=== PATIENT | female | born 2000 | race African-American/Black ===

== ENCOUNTER 2022-07-04 21:25 | Outpatient (CLI) | payer OTHER ==
[2022-07-04 22:56] VITALS: BP 152/84; PULSE 80; RESP 16; TEMP 98.2
--- NOTE | 2022-07-05 08:47 | P.MSEPDOC ---
Presenting Problems - Arrival Data Date of Arrival on Unit: 07/04/22 Time of Arrival on Unit: 21:25 Mode of Transport: Ambulatory - Complaint OB-Reason for Admission/Chief Complaint: Pain Comment: Patient arrived stated that she has been having painful contractions for. weeks. States that she has seen Dr. Alcaraz in the office. Patient states that the pain. is 8/10 with tightening. Arrived with cousin. Denies sexual activity in the past 24. hours. Medical History - Information : 1 Para: 0 Term: 0 : 0 Abortions: Spontaneous or Elective: 0 Number of Living Children: 0 - Gestational Age Gestational Age by JHONATAN (wks/days): 38 Weeks and 4 Days Review of Systems - Review of Systems Constitutional: No problems Breast: No problems ENT: No problems Cardiovascular: No problems Respiratory: No problems Gastrointestinal: No problems Genitourinary: No problems Musculoskeletal: No problems Neurological: No problems Skin: No problems Vital Signs - Temperature Temperature: 98.2 F Temperature Source: Temporal Artery Scan - Pulse Pulse Oximetery Pulse Rate: 80 Pulse Assessment Method: Pulse Oximetry - Respirations Respiratory Rate: 16 Oxygen Delivery Method: Room Air O2 Sat by Pulse Oximetry: 98 - Blood Pressure Right Arm Blood Pressure: 152/84 Blood Pressure Mean: 106 Blood Pressure Source: Automatic Cuff Medical Screen Scoring - Cervical Exam Dilation (cm): 0 Membranes: Intact - Assessment - Baby A Baseline FHR: 125 Heart Rate - NICHD Category: Category I (Normal) NST: Reactive Physician Notification - Physician Notified Physician Notified Date: 07/04/22 Physician Notified Time: 22:12 Physician: La Roman Order Received: Yes (Discharge home) - Notification Comment Comment: Discharged with instructions to keep appointment with Dr. Alcaraz this or to return if contractions become long, strong and 2-3 minutes apart or SROM occurs. Maternal Triage Index - Maternal Triage Index Presenting for scheduled procedure w/no complaint: No - Stat/Priority 1 Stat Priority 1: No - Urgent/Priority 2 Urgent Priority 2: No - Prompt/Priority 3 Prompt Priority 3: No - Non-Urgent/Priority 4 Non-Urgent Priority 4: Yes Criteria Met for Priority 4: Dr. Roman contacted, RN reported on patient and status,. irregular contraction pattern, patient denies pain since arriving to [facility] triage. Orders. to discharge with intructions to keep follow up appointment with Dr. Kieran bray or to return if contractions become more regular, 2-3 minutes apart, or SROM. occurs. Disposition - Disposition OB Disposition: Discharge to home Discharge Date: 07/04/22 Discharge Time: 22:24 I agree with the RN Medical Screening Exam: Yes Case reviewed; plan agreed upon as documented in EMR&OBIX.: Yes Diagnosis: FALSE LABOR AT OR AFTER 37 COMPLETED WEEKS OF GESTATION
== END 2022-07-04 22:24 | disposition home or self-care (01) ==
LOC: FBPOP 21:25
PROVIDERS: ATTEND Obstetrics & Gynecology
DX: O47.1 False labor at or after 37 completed weeks of gestation (principal); Z3A.38 38 weeks gestation of pregnancy
CPT/HCPCS: 59025; 84112; G0463; 99213

== ENCOUNTER 2022-07-08 06:00 | Inpatient (IN) | payer OTHER ==
[2022-07-08] MEDS ORDERED: OXYTOCIN 30 UNITS/500 ML NS 30 UNIT in SALINE 1 500ML.BAG IV SCH (16:18)
[2022-07-08] MEDS ORDERED: DINOPROSTONE 10 MG INSERT.ER VAGINAL ONE (16:18)
[2022-07-08] MEDS ORDERED: BUTORPHANOL 2 MG/ML 1 ML VIAL IV PRN (16:18)
[2022-07-08] MEDS ORDERED: hydrALAZINE HCL 20 MG/ML 1 ML VIAL IVP PRN (17:15)
[2022-07-08] MEDS ORDERED: LABETALOL 5 MG/ML VIAL MDV IVP PRN ×3 (17:15)
[2022-07-08] MEDS ORDERED: LACTATED RINGERS 1,000 ML IV SCH (17:30)
[2022-07-08 17:57] LABS: Basophils % (A) 0 %; Eosinophils % (A) 0 %; HCT 35.5 % (34.0-46.0); HGB 12.1 gm/dL (11.4-16.0); Lymphocytes # (A) 1.2 k/uL (1.0-4.8); Lymphocytes % (A) 25 %; MCH 31.6 pg (25.0-35.0); MCHC 34.1 g/dL (31.0-37.0); MCV 92.7 fL (80.0-100.0); Mean Platelet Volume 7.8; Monocytes # (A) 0.3 k/uL (0-1.0); Monocytes % (A) 7 %; Neutrophils # (A) 3.1 k/uL (1.3-7.7); Neutrophils % (A) 66 %; Platelet Count 217 k/uL (150-450); RBC 3.83 m/uL (3.80-5.40); RDW 13.5 % (11.5-15.5); WBC 4.7 k/uL (3.8-10.6)
[2022-07-08 18:01] LABS: ALT 30 U/L (4-34); AST 46 U/L (14-36); African American GFR (CKD) >90 (>60 ml/min/1.73 sqM); Blood Urea Nitrogen 3 mg/dL (7-17); LDH 245 U/L (120-246); Non-African American GFR(CKD) >90 (>60 ml/min/1.73 sqM); Uric Acid 3.7 mg/dL (3.7-7.4)
[2022-07-08 18:04] LABS: INR 0.9 (<1.2); Partial Thromboplastin Time 26.3 sec (22.0-30.0); Prothrombin Time 9.7 sec (9.0-12.0)
[2022-07-08 19:07] LABS: Creatinine,Urine Random 26.9 mg/dL; Protein/Creatinine Ratio,Urine 1.301
[2022-07-08] MEDS ORDERED: OXYTOCIN 10 UNIT/ML 1 ML VIAL IM PRN (19:13)
[2022-07-08] MEDS ORDERED: METHYLERGONOVINE 0.2 MG/ML 1 ML AMP IM PRN (19:13)
[2022-07-08] MEDS ORDERED: CITRIC ACID-SODIUM CITRATE 15 ML CUP PO ONE (19:13)
[2022-07-08] MEDS ORDERED: miSOPROStoL 200 MCG TAB PO PRN (19:13)
[2022-07-08] MEDS ORDERED: CARBOPROST TROMETHAMINE 250 MCG/ML 1 ML AMP IM PRN (19:13)
[2022-07-08] MEDS ORDERED: TRANEXAMIC ACID IN NACL,ISO-OS 1,000 MG in EMPTY BAG 1 BAG IV PRN (19:13)
[2022-07-08] MEDS ORDERED: MORPHINE SULFATE (PF) 0.3 MG/0.3 ML SYR ONE (19:39)
[2022-07-08] MEDS ORDERED: ONDANSETRON 4 MG/2 ML VIAL ONE (19:39)
[2022-07-08] MEDS ORDERED: OXYTOCIN 30 UNITS/500 ML NS BAG IV ONE (19:39)
[2022-07-08] MEDS ORDERED: KETOROLAC 15 MG/ML 1 ML VIAL ONE (19:39)
[2022-07-08] MEDS ORDERED: MORPHINE SULFATE 2 MG/ML SYRINGE IVP PRN (20:01)
[2022-07-08] MEDS ORDERED: diphenhydrAMINE 50 MG/ML 1 ML VIAL IVP PRN ×3 (20:01→20:17)
[2022-07-08] MEDS ORDERED: ONDANSETRON 4 MG/2 ML VIAL IVP PRN (20:01)
[2022-07-08] MEDS ORDERED: NALOXONE 0.4 MG/ML 1 ML VIAL IV PRN (20:01)
[2022-07-08] MEDS ORDERED: MAGNESIUM SULFATE-WATER PMX 4 GM in WATER FOR INJECTION 1 100ML.BAG IVPB ONE (20:16)
[2022-07-08] MEDS ORDERED: diphenhydrAMINE 25 MG CAP PO PRN (20:17)
[2022-07-08] MEDS ORDERED: SIMETHICONE 80 MG CHEWABLE PO PRN (20:17)
[2022-07-08] MEDS ORDERED: LANOLIN CREAM 5 GM TUBE TOPICAL PRN (20:17)
[2022-07-08] MEDS ORDERED: METOCLOPRAMIDE 5 MG/ML 2 ML VIAL IVP PRN (20:17)
[2022-07-08] MEDS ORDERED: ZOLPIDEM 5 MG TAB PO PRN (20:17)
[2022-07-08] MEDS ORDERED: diphenhydrAMINE 50 MG CAP PO PRN (20:17)
[2022-07-08 20:20] LABS: Appearance,Urine Cloudy (Clear); Bilirubin,Urine Negative (Negative); Blood,Urine Negative (Negative); Color,Urine Colorless; Glucose,Urine (UA) Negative (Negative); Ketones,Urine Negative (Negative); Leukocyte Esterase,Urine Large (Negative); Nitrite,Urine Negative (Negative); PH, Urine 7.5 (5.0-8.0); Protein,Urine Negative (Negative); RBC,Urine 1 /hpf (0-5); Specific Gravity,Urine 1.006 (1.001-1.035); Squamous Epithelial Cell,Urine 3 /hpf (0-4); Urobilinogen,Urine <2.0 mg/dL (<2.0); WBC,Urine 24 /hpf (0-5)
[2022-07-08] MEDS: ACETAMINOPHEN TAB 500 MG TAB PO SCH (21:12)
[2022-07-08] MEDS: MAGNESIUM SULFATE-WATER PMX 20 GM in WATER FOR INJECTION 1 500ML.BAG IV SCH (21:36)
[2022-07-09] MEDS: IBUPROFEN 600 MG TAB PO SCH ×4 (02:22→20:39)
[2022-07-09 04:46] LABS: Basophils % (A) 0 %; Eosinophils % (A) 0 %; HCT 30.2 % (34.0-46.0); HGB 10.3 gm/dL (11.4-16.0); Lymphocytes # (A) 0.9 k/uL (1.0-4.8); Lymphocytes % (A) 8 %; MCH 31.7 pg (25.0-35.0); MCV 93.2 fL (80.0-100.0); Monocytes # (A) 0.5 k/uL (0-1.0); Monocytes % (A) 4 %; Neutrophils # (A) 9.2 k/uL (1.3-7.7); Neutrophils % (A) 86 %; Platelet Count 214 k/uL (150-450); RBC 3.24 m/uL (3.80-5.40); RDW 13.5 % (11.5-15.5); WBC 10.7 k/uL (3.8-10.6)
[2022-07-09] MEDS: ACETAMINOPHEN TAB 500 MG TAB PO SCH ×4 (05:22→23:53)
[2022-07-09] MEDS: LACTATED RINGERS 1,000 ML IV SCH ×2 (07:43→07:44)
[2022-07-09] MEDS: MAGNESIUM SULFATE-WATER PMX 20 GM in WATER FOR INJECTION 1 500ML.BAG IV SCH (07:45)
[2022-07-09] MEDS: SENNOSIDES-DOCUSATE SODIUM 1 EACH TAB PO SCH ×2 (07:46→23:53)
[2022-07-09] MEDS: KETOROLAC 15 MG/ML 1 ML VIAL IVP SCH ×3 (09:22→21:19)
--- NOTE | 2022-07-09 10:18 | P.HPOB ---
History of Present Illness H&P Date: 07/08/22 Chief Complaint: induction of labor 22 year old presents at 39 weeks 1 day for 2 stage induction of labor. Her cervix is closed, thick and -3. She is tammy every few minutes. heart tones 135 with moderate variability and reactive. She has been very uncomfortable for the last few weeks but otherwise this has been uncomplicated. Upon presentation to L&D, pts BPs have been elevated. Labs were drawn and IV labetalol given. BPs are still elevated. Labs were drawn and pt is diagnosed with pre-eclampsia with severe features. I spoke to her and her family at bedside and explained the situation. We decided on an expedited delivery via delivery. All questions were answered and consents signed. Review of Systems All systems: negative Constitutional: Denies chills, Denies fever Eyes: denies blurred vision, denies pain Ears, nose, mouth and throat: Denies headache, Denies sore throat Cardiovascular: Denies chest pain, Denies shortness of breath Respiratory: Denies cough Gastrointestinal: Denies abdominal pain, Denies diarrhea, Denies nausea, Denies vomiting Genitourinary: Denies dysuria, Denies hematuria Musculoskeletal: Denies myalgias Integumentary: Denies pruritus, Denies rash Neurological: Denies numbness, Denies weakness Psychiatric: Denies anxiety, Denies depression Endocrine: Denies fatigue, Denies weight change Past Medical History Past Medical History: No Reported History Additional Past Medical History / Comment(s): OB history. This is her first and she had consistent care with me. She made all of her appointments though she had to walk or take the bus. Pt comes from foster care and now lives with siblings. O+, abs neg, Rub Imm, RPR NR, Hep B neg, HIV NR. History of Any Multi-Drug Resistant Organisms: None Reported Past Surgical History: No Surgical Hx Reported Past Anesthesia/Blood Transfusion Reactions: No Reported Reaction Past Psychological History: No Psychological Hx Reported Smoking Status: Never smoker Past Alcohol Use History: None Reported Past Drug Use History: None Reported - Past Family History Sister(s) Family Medical History: No Reported History Brother(s) Family Medical History: Hypertension Medications and Allergies Home Medications Medication Instructions Recorded Confirmed Type Vit No.179/Iron/Folic 1 each PO DAILY 07/04/22 07/08/22 History [ Tablet] Allergies Allergy/AdvReac Type Severity Reaction Status Date / Time No Known Allergies Allergy Verified 07/08/22 16:17 Exam Osteopathic Statement: *. No significant issues noted on an osteopathic structural exam other than those noted in the History and Physical/Consult. Vital Signs Temp Pulse Resp BP Pulse Ox 07/09/22 09:54 16 07/09/22 09:00 100 07/09/22 08:00 98.4 F 75 16 124/70 99 07/09/22 07:00 70 15 100 07/09/22 06:00 71 16 134/86 100 07/09/22 05:00 97.0 F L 69 16 133/77 97 07/09/22 04:00 65 16 135/82 100 07/09/22 03:00 63 16 139/85 100 07/09/22 02:00 72 16 121/70 98 07/09/22 01:01 97 07/09/22 01:00 73 16 115/57 97 07/09/22 00:00 97.0 F L 80 16 129/72 98 07/08/22 23:01 96.3 F L 74 16 130/73 99 07/08/22 22:23 96.3 F L 59 L 16 126/79 99 07/08/22 21:51 97.1 F L 61 16 129/66 99 07/08/22 21:23 97.1 F L 55 L 16 130/77 98 07/08/22 21:08 97.0 F L 56 L 16 129/76 96 07/08/22 20:58 97 07/08/22 20:57 16 97 07/08/22 20:52 97.0 F L 56 L 16 132/64 96 07/08/22 20:38 97.0 F L 56 L 16 112/51 96 07/08/22 20:19 97.0 F L 75 16 111/58 97 07/08/22 17:36 97.8 F 71 16 158/83 98 Intake and Output 07/08/22 07/09/22 07/09/22 22:59 06:59 14:59 Intake Total 750 600 Output Total 1399 934 200 Balance -1399 -184 400 Intake: IV 750 Intake, IV Titration 600 Amount Magnesium Sulfate-Water 600 Pmx 20 gm In Water For Injection 1 500ml.bag @ 2 GM/HR 50 mls/hr IV .Q10H [facility] Rx#:[id number] Output: Urine 800 800 200 Output, Quantitative 599 134 Blood Loss Other: Weight 48.988 kg 55.973 kg Heart: Regular rate and rhythm Lungs: Clear to auscultation bilaterally Abdomen: Soft, nontender Extremities: Negative Homans sign Results Result Diagrams: 07/09/22 04:11 07/08/22 17:30 Abnormal Lab Results - Last 24 Hours (Table) 07/08/22 07/08/22 07/09/22 Range/Units 17:30 18:30 04:11 WBC 10.7 H (3.8-10.6) k/uL RBC 3.24 L (3.80-5.40) m/uL Hgb 10.3 L (11.4-16.0) gm/dL Hct 30.2 L (34.0-46.0) % Neutrophils # 9.2 H (1.3-7.7) k/uL Lymphocytes # 0.9 L (1.0-4.8) k/uL BUN 3 L (7-17) mg/dL Creatinine 0.47 L (0.52-1.04) mg/dL AST 46 H (14-36) U/L Urine Appearance Cloudy H (Clear) Ur Leukocyte Esterase Large H (Negative) Urine WBC 24 H (0-5) /hpf Assessment and Plan (1) Pre-eclampsia Current Visit: Yes Status: Acute Code(s): O14.90 - UNSPECIFIED PRE- ECLAMPSIA, UNSPECIFIED TRIMESTER SNOMED Code(s): 857983080 (2) 39 weeks gestation of Current Visit: Yes Status: Acute Code(s): Z3A.39 - 39 WEEKS GESTATION OF SNOMED Code(s): 01191143 Plan: 1. primary low transverse 2. magnesium sulfate 3. seizure precautions
--- NOTE | 2022-07-09 10:21 | P.OP ---
Date of Procedure: 07/09/22 Preoperative Diagnosis: 1. at 39 weeks 1 day 2. pre-eclampsia with severe features Postoperative Diagnosis: same Procedure(s) Performed: Primary low transverse Anesthesia: spinal Surgeon: Pebbles Alcaraz Electrical Service Technician #1: Kat Sexton Estimated Blood Loss (ml): 500 IV fluids (ml): 600 Urine output (ml): 200 Pathology: other (placenta) Condition: stable Disposition: floor Operative Findings: Viable male, Apgars 9, 9, weight 6 lbs. 13 oz. Normal uterus, tubes, ovaries. Description of Procedure: Patient was taken to the operating room where spinal anesthesia was found be adequate. She was prepped and draped in normal sterile fashion in dorsal supine position with a leftward tilt. Pfannenstiel skin incision was made the scalpel and carried through to the underlying layer of fascia with the scalpel. Fascia was incised in midline and carried bilaterally with the Kraus scissors. The superior aspect of the fascial incision was grasped with [place] clamps elevated and the underlying rectus muscles dissected off with the Kraus's. Attention was then turned to inferior aspect of same incision which in a similar fashion was grasped tented up and the underlying rectus muscles dissected off with the Kraus's. The rectus muscles were the midline and the peritoneum was identified tented up and entered sharply with the scalpel. The incision was ext ended superiorly and inferiorly with good visualization of the bladder. The bladder blade was inserted and the vesicouterine peritoneum was incised the Metzenbaums then carried bilaterally and bladder flap created digitally. A low transverse incision was then made on the uterus with the scalpel. This was carried bilaterally and digital manner. 's head delivered atraumatically, nose and mouth bulb suctioned, cord clamped and cut, infant handed off to waiting nurses. Apgars 9,9, weight 6 lbs. 13 oz. Placenta delivered manually, intact with three-vessel cord. The uterus is exteriorized and cleared of all clots and debris. The uterine incision was closed with 0 Vicryl in a running locked fashion. Second layer of the same sutures used in imbricating fashion to obtain excellent hemostasis. Bladder flap was then reapproximated using 2-0 Vicryl in a running fashion. Both ovaries and tubes appeared normal. The uterus was placed back into the abdomen. The peritoneum was reapproximated using 2-0 Vicryl in a running fashion. The muscles were reapproximated using 2- 0 Vicryl in interrupted fashion. The fascia was reapproximated using 0 Vicryl in a running fashion. The subcutaneous tissues closed with 3-0 Vicryl running fashion. The skin was closed jb. Patient tolerated the procedure well, sponge and instrument counts were correct times 2 and she was taken to the recovery room in stable condition.
--- NOTE | 2022-07-09 10:23 | P.PNOBGPC ---
Subjective - Subjective Principal diagnosis: Status post primary low transverse postop day 1 Interval history: Patient has been placed on magnesium sulfate. She was seen and examined this morning again. She is complaining of a headache behind her eyes and nausea that she is experiencing last night. Her pain is controlled with Toradol and Tylenol. She continues to have good output with the Lemus. Patient reports: Reports pain well controlled (Except for her headache), Reports appetite poor, Reports nauseated : doing well Objective - Vital Signs Latest vital signs: Vital Signs Temp Pulse Resp BP Pulse Ox 07/09/22 09:54 16 07/09/22 09:00 100 07/09/22 08:00 98.4 F 75 16 124/70 99 07/09/22 07:00 70 15 100 07/09/22 06:00 71 16 134/86 100 07/09/22 05:00 97.0 F L 69 16 133/77 97 07/09/22 04:00 65 16 135/82 100 07/09/22 03:00 63 16 139/85 100 07/09/22 02:00 72 16 121/70 98 07/09/22 01:01 97 07/09/22 01:00 73 16 115/57 97 07/09/22 00:00 97.0 F L 80 16 129/72 98 07/08/22 23:01 96.3 F L 74 16 130/73 99 07/08/22 22:23 96.3 F L 59 L 16 126/79 99 07/08/22 21:51 97.1 F L 61 16 129/66 99 07/08/22 21:23 97.1 F L 55 L 16 130/77 98 07/08/22 21:08 97.0 F L 56 L 16 129/76 96 07/08/22 20:58 97 07/08/22 20:57 16 97 07/08/22 20:52 97.0 F L 56 L 16 132/64 96 07/08/22 20:38 97.0 F L 56 L 16 112/51 96 07/08/22 20:19 97.0 F L 75 16 111/58 97 07/08/22 17:36 97.8 F 71 16 158/83 98 Intake and Output 07/08/22 07/09/22 07/09/22 22:59 06:59 14:59 Intake Total 750 600 Output Total 1399 934 200 Balance -1399 -184 400 Intake: IV 750 Intake, IV Titration 600 Amount Magnesium Sulfate-Water 600 Pmx 20 gm In Water For Injection 1 500ml.bag @ 2 GM/HR 50 mls/hr IV .Q10H [facility] Rx#:[id number] Output: Urine 800 800 200 Output, Quantitative 599 134 Blood Loss Other: Weight 48.988 kg 55.973 kg - Exam Lungs: bilateral: normal Chest: Normal S1, Normal S2 Extremities: Present: normal, other (Reflexes are 2+) Abdomen: Present: normal appearance, soft. Absent: distention, tenderness Incision: Present: normal, dry, intact Uterus: Present: normal, firm - Labs Labs: Abnormal Lab Results - Last 24 Hours (Table) 07/08/22 07/08/22 07/09/22 Range/Units 17:30 18:30 04:11 WBC 10.7 H (3.8-10.6) k/uL RBC 3.24 L (3.80-5.40) m/uL Hgb 10.3 L (11.4-16.0) gm/dL Hct 30.2 L (34.0-46.0) % Neutrophils # 9.2 H (1.3-7.7) k/uL Lymphocytes # 0.9 L (1.0-4.8) k/uL BUN 3 L (7-17) mg/dL Creatinine 0.47 L (0.52-1.04) mg/dL AST 46 H (14-36) U/L Urine Appearance Cloudy H (Clear) Ur Leukocyte Esterase Large H (Negative) Urine WBC 24 H (0-5) /hpf Assessment and Plan (1) Pre-eclampsia Current Visit: Yes Status: Acute Code(s): O14.90 - UNSPECIFIED PRE-ECLAMPSIA, UNSPECIFIED TRIMESTER SNOMED Code(s): 760508624 (2) 39 weeks gestation of Current Visit: Yes Status: Resolved Code(s): Z3A.39 - 39 WEEKS GESTATION OF SNOMED Code(s): 34849935 (3) Status post primary low transverse section Current Visit: Yes Status: Acute Code(s): Z98.891 - HISTORY OF UTERINE SCAR FROM PREVIOUS SURGERY SNOMED Code(s): 203920003 Plan: 1. We'll decrease the magnesium sulfate to 1 g an hour to see if that helps her headache. 2. Social service consult 3. Monitor blood pressures and output closely
[2022-07-09 11:24] LABS: Amphetamine Screen,Urine Not Detected (NotDetected); Barbiturate Screen,Urine Not Detected (NotDetected); Benzodiazepines Screen,Urine Not Detected (NotDetected); Cocaine Screen,Urine Not Detected (NotDetected); Methadone Screen, Urine Not Detected (NotDetected); Opiate Screen,Urine Not Detected (NotDetected); Oxycodone Screen, Urine Not Detected (NotDetected); Phencyclidine Screen,Urine Not Detected (NotDetected); Tricyclic Antidepressant,Urine Not Detected (NotDetected); Urn Cannabinoid Scrn Not Detected (NotDetected)
--- NOTE | 2022-07-09 15:46 | P.PN ---
Progress Note - Text Progress Note Date: 07/09/22 Postoperative day 1 status post section under spinal anesthesia, and i ntrathecal morphine given for postoperative analgesia, patient doing well, there is no anesthesia related complications, Patient had no headache, vital signs stable , Assessment and plan= postop day 1 status post , doing well there is no anesthesia related complication.
[2022-07-10] MEDS: IBUPROFEN 600 MG TAB PO SCH ×4 (03:10→22:30)
[2022-07-10] MEDS: KETOROLAC 15 MG/ML 1 ML VIAL IVP SCH ×2 (06:16→19:26)
[2022-07-10] MEDS: ACETAMINOPHEN TAB 500 MG TAB PO SCH ×3 (06:17→20:23)
[2022-07-10] MEDS: LACTATED RINGERS 1,000 ML IV SCH (19:25)
[2022-07-10] MEDS: SENNOSIDES-DOCUSATE SODIUM 1 EACH TAB PO SCH ×2 (19:26→22:30)
[2022-07-11] MEDS: ACETAMINOPHEN TAB 500 MG TAB PO SCH ×4 (00:39→22:03)
[2022-07-11] MEDS: KETOROLAC 15 MG/ML 1 ML VIAL IVP SCH ×2 (00:39→04:45)
[2022-07-11] MEDS: IBUPROFEN 600 MG TAB PO SCH ×4 (04:29→16:09)
[2022-07-11] MEDS: SENNOSIDES-DOCUSATE SODIUM 1 EACH TAB PO SCH ×2 (08:21→22:03)
--- NOTE | 2022-07-11 12:57 | P.PNOBGPC ---
Subjective - Subjective Principal diagnosis: Status post primary low transverse postop day 2 Interval history: Patient is doing much better today. She is ambulating voiding without difficulty. She denies nausea, vomiting, chest pain, shortness of breath or any calf pain. Patient reports: Reports appetite normal, Reports voiding normally, Reports pain well controlled, Reports ambulating normally [place]: doing well Objective - Vital Signs Latest vital signs: Vital Signs Temp Pulse Resp BP Pulse Ox 07/11/22 12:00 98.4 F 84 16 138/88 99 07/11/22 08:15 98.6 F 95 16 126/72 99 07/11/22 04:00 61 134/92 07/11/22 00:00 98.6 F 95 16 131/78 95 07/10/22 20:00 97 134/86 07/10/22 15:19 98.3 F 81 16 115/59 Intake and Output 07/10/22 07/11/22 07/11/22 22:59 06:59 14:59 Other: # Voids 1 2 1 - Exam Lungs: bilateral: normal Chest: Normal S1, Normal S2 Extremities: Present: normal Abdomen: Present: normal appearance, soft. Absent: distention, tenderness Incision: Present: normal, dry, intact Uterus: Present: normal, firm Assessment and Plan (1) Pre-eclampsia Current Visit: Yes Status: Acute Code(s): O14.90 - UNSPECIFIED PRE- ECLAMPSIA, UNSPECIFIED TRIMESTER SNOMED Code(s): 225698551 (2) 39 weeks gestation of Current Visit: Yes Status: Resolved Code(s): Z3A.39 - 39 WEEKS GESTATION OF SNOMED Code(s): 14517890 (3) Status post primary low transverse section Current Visit: Yes Status: Acute Code(s): Z98.891 - HISTORY OF UTERINE SCAR FROM PREVIOUS SURGERY SNOMED Code(s): 190313023 Plan: 1. Social work consult today 2. Continue was teaching and postoperative care
[2022-07-12] MEDS: IBUPROFEN 600 MG TAB PO SCH ×3 (01:16→08:50)
[2022-07-12] MEDS: ACETAMINOPHEN TAB 500 MG TAB PO SCH ×2 (04:52→04:53)
--- NOTE | 2022-07-12 08:02 | P.DS ---
Providers Date of admission: 07/08/22 15:55 Expected date of discharge: 07/12/22 Attending physician: Pebbles Alcaraz Primary care physician: Stated None - Discharge Diagnosis(es) (1) Pre-eclampsia Current Visit: Yes Status: Acute (2) 39 weeks gestation of Current Visit: Yes Status: Resolved (3) Status post primary low transverse section Current Visit: Yes Status: Acute Hospital Course: Patient presented for a 2-stage induction of labor. She was diagnosed with preeclampsia after she got to the hospital and underwent a primary low transverse . Postoperatively she was on magnesium sulfate for 24 hours. Her blood pressures normalized and symptoms resolved. Patient now denies nausea, vomiting, chest pain, shortness of breath or calf pain. Her exam is normal, fundus firm and incision is clean, dry, intact. Discharge or shortness of breath and reviewed with patient. I will see her in 1 week. If she starts having any signs or symptoms of preeclampsia which were reviewed with her several times she is to call the office or come to the hospital immediately. Social service consult was also done outpatient was here. Patient will be discharged home postoperative day #3 in stable condition to follow-up with me in one week. Plan - Discharge Summary New Discharge Prescriptions: New Ibuprofen [Motrin] 600 mg PO Q6H #30 tab oxyCODONE HCL [OxyIR] 5 mg PO Q4HR PRN #12 tab PRN Reason: Pain Scale 4 - 6 Acetaminophen Tab [Tylenol] 1,000 mg PO Q6H #60 tab No Action Vit No.179/Iron/Folic [ Tablet] 1 each PO DAILY Discharge Medication List Vit No.179/Iron/Folic [ Tablet] 1 each PO DAILY 07/04/22 [History] Acetaminophen Tab [Tylenol] 1,000 mg PO Q6H #60 tab 07/12/22 [Rx] Ibuprofen [Motrin] 600 mg PO Q6H #30 tab 07/12/22 [Rx] oxyCODONE HCL [OxyIR] 5 mg PO Q4HR PRN #12 tab 07/12/22 [Rx] Follow up Appointment(s)/Referral(s): Pebbles Alcaraz DO [Doctor of Osteopathic Medicine] - 1 Week (PP 08/28/2022 @11:15 Am) Discharge Disposition: HOME SELF-CARE
[2022-07-12 08:35] VITALS: BP 131/47; PULSE 71; RESP 14; TEMP 98.4
[2022-07-12] MEDS: SENNOSIDES-DOCUSATE SODIUM 1 EACH TAB PO SCH (08:51)
== END 2022-07-12 12:30 | disposition home or self-care (01) | DRG 540 ==
LOC: 4FBP 15:55
PROVIDERS: ADMIT Obstetrics & Gynecology; ATTEND Obstetrics & Gynecology
PROC: 10D00Z1 Extraction of Products of Conception, Low, Open Approach (ICD-10-PCS; principal; 2022-07-08 19:40)
DX: O14.14 Severe pre-eclampsia complicating childbirth (principal); O15.1 Eclampsia complicating labor; Z37.0 Single live birth; Z3A.39 39 weeks gestation of pregnancy
CPT/HCPCS: 80306; 81001; 82565; 82570; 83615; 84156; 84450; 84460; 84520; 84550; 85025; 85384; 85610; 85730; 86850; 86900; 86901

== ENCOUNTER 2024-04-08 20:40 | Outpatient (CLI) | payer OTHER ==
[2024-04-08 21:26] LABS: Appearance,Urine Cloudy (Clear); Bacteria,Urine Occasional /hpf; Bilirubin,Urine Negative (Negative); Blood,Urine Negative (Negative); Color,Urine Colorless; Glucose,Urine (UA) Negative (Negative); Ketones,Urine Negative (Negative); Leukocyte Esterase,Urine Negative (Negative); Mucus,Urine Rare /hpf; Nitrite,Urine Negative (Negative); Protein,Urine Negative (Negative); RBC,Urine <1 /hpf (0-5); Specific Gravity,Urine 1.005 (1.001-1.035); Squamous Epithelial Cell,Urine 16 /hpf (0-4); Urobilinogen,Urine <2.0 mg/dL (<2.0); WBC,Urine 2 /hpf (0-5)
[2024-04-08 21:52] VITALS: BP 124/68; PULSE 80; RESP 15; TEMP 97.8
--- NOTE | 2024-05-29 20:17 | P.MSEPDOC ---
Presenting Problems - Arrival Data Date of Arrival on Unit: 04/08/24 Time of Arrival on Unit: 20:40 Mode of Transport: Ambulatory - Complaint OB-Reason for Admission/Chief Complaint: Headache, Visual Disturbances Comment: Pt presents to triage with c/o headache that she has had for a week, but got worse around 0800 this morning and blurry vision that started yesterday. Pt is rating headache pain 7 out of 10. Medical History - Information : 2 Para: 1 Term: 1 : 0 Abortions: Spontaneous or Elective: 0 Number of Living Children: 1 - Gestational Age Gestational Age by JHONATAN (wks/days): 26 Weeks and 6 Days - History Complications: Prior Review of Systems - Review of Systems Constitutional: No problems Breast: No problems ENT: No problems Cardiovascular: No problems Respiratory: No problems Gastrointestinal: No problems Genitourinary: No problems Musculoskeletal: No problems Neurological: No problems Skin: No problems Vital Signs - Temperature Temperature: 97.8 F Temperature Source: Temporal Artery Scan - Pulse Pulse Oximetery Pulse Rate: 80 Pulse Assessment Method: Pulse Oximetry - Respirations Respiratory Rate: 15 Oxygen Delivery Method: Room Air O2 Sat by Pulse Oximetry: 99 - Blood Pressure Right Arm Blood Pressure: 124/68 Blood Pressure Mean: 86 Blood Pressure Source: Automatic Cuff Physician Notification - Physician Notified Physician Notified Date: 04/08/24 Physician Notified Time: 21:29 Physician: Kat Sexton New Order Received: Yes - Notification Comment Comment: RN spoke with Dr. Sexton regarding triage pt c/o headache for a week but has gotten worse since 0800, rating pain 7 out of 10 and blurry vision, pt ne rvous as she had severe pre-e with prior . Reported no other pre-e symptoms, urinalysis sent and WNL, vital signs WNL with highest BP of 124/68 and pt has not taken anything for headache at home. Reported a few contx traced on toco, but pt states not painful. Order received to offer fluids, ofirmev/tylenol and benadryl and d/c pt home. Maternal Triage Index - Maternal Triage Index Presenting for scheduled procedure w/no complaint: No - Stat/Priority 1 Stat Priority 1: No - Urgent/Priority 2 Urgent Priority 2: No - Prompt/Priority 3 Prompt Priority 3: No - Non-Urgent/Priority 4 Non-Urgent Priority 4: Yes Criteria Met for Priority 4: Common discomforts of Disposition - Disposition OB Disposition: Discharge to home, Written follow up instructions reviewed Discharge Date: 04/08/24 Discharge Time: 21:37 I agree with the RN Medical Screening Exam: Yes Case reviewed; plan agreed upon as documented in EMR&OBIX.: Yes Comments: patient wasnt seen by myself Diagnosis: HEADACHE, UNSPECIFIED
== END 2024-04-08 21:37 | disposition home or self-care (01) ==
LOC: FBPOP 20:40
PROVIDERS: ATTEND Obstetrics & Gynecology Obstetrics
DX: O29.42 Spinal and epidural anesthesia induced headache during pregnancy, second trimester (principal); Z3A.26 26 weeks gestation of pregnancy
CPT/HCPCS: 81001; G0463; 99215

== ENCOUNTER 2024-06-24 03:46 | Outpatient (CLI) | payer OTHER ==
[2024-06-24 05:13] VITALS: BP 136/80; PULSE 71; RESP 16; TEMP 98.7
--- NOTE | 2024-07-02 20:24 | P.MSEPDOC ---
Presenting Problems - Arrival Data Date of Arrival on Unit: 06/24/24 Time of Arrival on Unit: 03:46 Mode of Transport: Ambulatory - Complaint OB-Reason for Admission/Chief Complaint: Possible Onset of Labor Comment: Patient presents to triage with complaint of contracitons starting at 0200 occuring every 2minutes. Patient complains of "not feeling well". Medical History - Information : 2 Para: 1 Term: 1 : 0 Abortions: Spontaneous or Elective: 0 Number of Living Children: 1 - Gestational Age Gestational Age by JHONATAN (wks/days): 37 Weeks and 6 Days Review of Systems - Review of Systems Constitutional: No problems Breast: No problems ENT: No problems Cardiovascular: No problems Respiratory: No problems Gastrointestinal: No problems Genitourinary: No problems Musculoskeletal: No problems Neurological: No problems Skin: No problems Vital Signs - Temperature Temperature: 98.7 F Temperature Source: Temporal Artery Scan - Pulse Pulse Oximetery Pulse Rate: 71 Pulse Assessment Method: Pulse Oximetry - Respirations Respiratory Rate: 16 Oxygen Delivery Method: Room Air O2 Sat by Pulse Oximetry: 98 - Blood Pressure Right Arm Blood Pressure: 136/80 Blood Pressure Mean: 98 Blood Pressure Source: Automatic Cuff Medical Screen Scoring - Cervical Exam Dilation (cm): 0 Effacement (%): 0 Station: -4 Membranes: Intact - Assessment - Baby A Baseline FHR: 120 Heart Rate - NICHD Category: Category I (Normal) NST: Reactive Physician Notification - Physician Notified Physician Notified Date: 06/24/24 Physician Notified Time: 04:51 Physician: Ella Stevenson Order Received: Yes - Notification Comment Comment: Call placed to Dr Stevenson, Report of patient presenting with c/o contractions, nausea, and headache. Category 1 strip, irritibility noted on monitor, patient drinking water, SVE closed/thick/high with no presenting part noted, patient has scheduled appointment 06/25 in office. Patient is going to be a repeat . Orders received to discharge patient home. patient to keep appointment with Dr Alcaraz. Maternal Triage Index - Maternal Triage Index Presenting for scheduled procedure w/no complaint: No - Stat/Priority 1 Stat Priority 1: No - Urgent/Priority 2 Urgent Priority 2: No - Prompt/Priority 3 Prompt Priority 3: No - Non-Urgent/Priority 4 Non-Urgent Priority 4: Yes Criteria Met for Priority 4: Patient presents to triage with complaint of contracitons starting at 0200 occuring every 2minutes. Patient complains of "not feeling well". Disposition - Disposition OB Disposition: Discharge to home Discharge Date: 06/24/24 Discharge Time: 04:53 I agree with the RN Medical Screening Exam: Yes Physician's MSE Comment: I have neither seen no examined the patient Case reviewed; plan agreed upon as documented in EMR&OBIX.: Yes Diagnosis: FALSE LABOR, UNSPECIFIED
== END 2024-06-24 04:53 ==
LOC: FBPOP 03:46
PROVIDERS: ATTEND Obstetrics & Gynecology
DX: O47.1 False labor at or after 37 completed weeks of gestation (principal); Z3A.37 37 weeks gestation of pregnancy
CPT/HCPCS: 59025; G0463; 99213

== ENCOUNTER 2024-06-30 19:14 | Inpatient (IN) | payer OTHER ==
[2024-06-30] MEDS ORDERED: OXYTOCIN 10 UNIT/ML 1 ML VIAL IM PRN (19:52)
[2024-06-30] MEDS ORDERED: TRANEXAMIC 1,000 MG/100ML-NACL 1,000 MG in EMPTY BAG 1 BAG IV PRN (19:52)
[2024-06-30] MEDS ORDERED: CARBOPROST TROMETHAMINE 250 MCG/ML 1 ML AMP IM PRN (19:52)
[2024-06-30] MEDS ORDERED: miSOPROStoL 200 MCG TAB PO PRN (19:52)
[2024-06-30] MEDS ORDERED: METHYLERGONOVINE 0.2 MG/ML 1 ML AMP IM PRN (19:52)
[2024-06-30] MEDS: LACTATED RINGERS 1,000 ML IV ONE (20:00)
[2024-06-30 20:06] LABS: Basophils # (A) 0.02 10*3/uL (0.00-0.10); Basophils % (A) 0.3 %; Eosinophils # (A) 0.02 10*3/uL (0.04-0.35); Eosinophils % (A) 0.3 %; HCT 32.3 % (37.2-46.3); HGB 11.4 g/dL (12.0-15.0); Lymphocytes % (A) 18.3 %; MCH 31.3 pg (27.0-32.0); MCHC 35.3 g/dL (32.0-37.0); MCV 88.7 fL (80.0-97.0); Mean Platelet Volume 9.9 fL (9.5-12.2); Monocytes # (A) 0.53 10*3/uL (0.20-1.00); Monocytes % (A) 7.5 %; Neutrophils # (A) 5.17 10*3/uL (1.80-7.70); Neutrophils % (A) 72.9 %; Platelet Count 217 10*3/uL (140-440); RBC 3.64 10*6/uL (4.10-5.20); RDW 12.3 % (11.5-14.5); WBC 7.09 10*3/uL (4.50-10.00)
--- NOTE | 2024-06-30 20:06 | P.HPOB ---
History of Present Illness H&P Date: 06/30/24 Chief Complaint: 38-5/7 weeks, transverse lie, vaginal bleeding, previous ce sarean section The patient is a 24-year-old 4 para 1-0-2-1 admitted at 38-5/7 weeks as established by last menstrual period and confirmed by second trimester ultrasound. She is admitted with vaginal bleeding and uterine contractions every 1 to 3 minutes. She carries a history of a previous section and her fetus has recently been found to be in transverse lie which is confirmed by bedside hand-held ultrasound. Her has otherwise been uncomplicated and group B strep status is negative. On labor delivery, all signs are reassuring with a category 1 heart rate tracing. Obstetrical history: 4 para 1-0-2-1 with 1 previous section. Current statistics are listed in history of present illness. EDC of 07/09/2024 was established by last menstrual period and confirmed by second trimester ultrasound. Laboratory workup demonstrates a blood type of O+ with a negative antibody screen. Rubella status is immune. The remainder of the lab oratory workup was within normal limits. 1 hour Glucola was normal and group B strep status is negative. Gynecologic history: Unremarkable with no history of any infections to include STDs. Review of Systems Review of systems is confined to history of present illness. Past Medical History Past Medical History: No Reported History Additional Past Medical History / Comment(s): OB history. This is her first and she had consistent care with me. She made all of her appointments though she had to walk or take the bus. Pt comes from foster care and now lives with siblings. O+, abs neg, Rub Imm, RPR NR, Hep B neg, HIV NR. History of Any Multi-Drug Resistant Organisms: None Reported Past Surgical History: No Surgical Hx Reported Past Anesthesia/Blood Transfusion Reactions: No Reported Reaction Smoking Status: Never smoker - Past Family History Sister(s) Family Medical History: No Reported History Brother(s) Family Medical History: Hypertension Medications and Allergies Home Medications Medication Instructions Recorded Confirmed Type Vit No.179/Iron/Folic 1 each PO DAILY 07/04/22 06/24/24 History [ Tablet] Allergies Allergy/AdvReac Type Severity Reaction Status Date / Time No Known Allergies Allergy Verified 06/30/24 19:19 Exam Intake and Output 06/30/24 06/30/24 06/30/24 06:59 14:59 22:59 Other: Weight 48.988 kg General, this is a well-developed, well-nourished -Stateless female in some discomfort as she is likely in early labor with heart contractions. Her heart has a regular rhythm and rate without murmur. Her lungs are clear to auscultation bilaterally in all gomez. Her abdomen is gravid, nondistended, has normal active bowel sounds, soft, nontender, and without any palpable masses aside from the uterine fundus. Her extremities are without any cyanosis, clubbing, or edema and are nontender to palpation. Digital cervical examination is deferred. Assessment and Plan (1) Transverse lie Current Visit: Yes Status: Acute Code(s): O32.2XX0 - MATERNAL CARE FOR TRANSVERSE AND OBLIQUE LIE, UNSP SNOMED Code(s): 60471208 (2) Vaginal bleeding during Current Visit: Yes Status: Acute Code(s): O46.90 - ANTEPARTUM HEMORRHAGE, UNSPECIFIED, UNSPECIFIED TRIMESTER SNOMED Code(s): 70539921090212890 (3) Previous section Current Visit: Yes Status: Acute Code(s): Z98.891 - HISTORY OF UTERINE SCAR FROM PREVIOUS SURGERY SNOMED Code(s): 655129200 (4) Active labor at term Current Visit: Yes Status: Acute Code(s): MOB3325 - SNOMED Code(s): 07905541 Plan: The patient is admitted for active management of labor. Given her history and plan for repeat section, she will be taken to the operating room for repeat low-transverse section. The risks and complications has been discussed and she has understood and agreed to proceed.
[2024-06-30] MEDS: CITRIC ACID-SODIUM CITRATE 15 ML CUP PO ONE (20:10)
[2024-06-30] MEDS: LACTATED RINGERS 1,000 ML IV SCH (20:10)
[2024-06-30] MEDS ORDERED: KETOROLAC 15 MG/ML 1 ML VIAL ONE (20:16)
[2024-06-30] MEDS ORDERED: MORPHINE SULFATE (PF) 0.3 MG/0.3 ML SYR ONE (20:16)
[2024-06-30] MEDS ORDERED: ONDANSETRON 4 MG/2 ML VIAL ONE (20:16)
[2024-06-30] MEDS ORDERED: NALBUPHINE (ANES) 10 MG/ML - 1 ML AMP ONE (20:16)
[2024-06-30] MEDS ORDERED: OXYTOCIN 10 UNIT/ML 1 ML VIAL ONE (20:16)
[2024-06-30] MEDS ORDERED: diphenhydrAMINE 50 MG CAP PO PRN (21:12)
[2024-06-30] MEDS ORDERED: ONDANSETRON 4 MG/2 ML VIAL IVP PRN (21:12)
[2024-06-30] MEDS ORDERED: ZOLPIDEM 5 MG TAB PO PRN (21:12)
[2024-06-30] MEDS ORDERED: diphenhydrAMINE 25 MG CAP PO PRN (21:12)
[2024-06-30] MEDS ORDERED: LANOLIN CREAM 1 GM TUBE TOPICAL PRN (21:12)
[2024-06-30] MEDS ORDERED: METOCLOPRAMIDE 5 MG/ML 2 ML VIAL IVP PRN (21:12)
[2024-06-30] MEDS ORDERED: NALOXONE 0.4 MG/ML 1 ML VIAL IV PRN (21:12)
[2024-06-30] MEDS ORDERED: SIMETHICONE 80 MG CHEWABLE PO PRN (21:12)
--- NOTE | 2024-06-30 21:12 | P.OP ---
Date of Procedure: 06/30/24 Preoperative Diagnosis: #1. 38-5/7 weeks, early labor #2. Previous section #3. Transverse lie #4. Vaginal bleeding Postoperative Diagnosis: Same Procedure(s) Performed: #1. Repeat low-transverse section Anesthesia: spinal Surgeon: Christopher Menezes Segregator #1: Nichole Fowler Estimated Blood Loss (ml): 563 IV fluids (ml): 600 Urine output (ml): 1,000 Pathology: none sent Condition: stable Disposition: floor Operative Findings: See dictated H&P for conditions leading to delivery. The patient was taken to the operating room where she was delivered of a viable 6 pound 11 ounce baby girl with Apgars of 8 at 1 minute and 9 at 5 minutes found in the vertex presentation, occiput posterior. There was lightly meconium stained fluid present. Thorough suction was carried out at the time of delivery of the head and prior to the body. The placenta was delivered manually, intact, and grossly normal with a grossly normal three-vessel cord. There was no apparent evidence of abruption. The uterus, tubes, and ovaries were entirely normal to inspection. The patient did have a significant degree of diastases leading to loose closure of the rectus muscles in the midline as noted below. Description of Procedure: Patient was prepped and draped in usual fashion after spinal anesthesia was administered by the anesthesiologist. A Pfannenstiel incision was made through her pre-existing scar and extended into the abdominal cavity without difficulty. There was a moderate amount of scarring at the level of the rectus muscles to the fascia and a significant amount of diastases recti. The bladder peritoneum was elevated, incised, and reflected distally. A 2 cm incision was made in the transverse plane of the lower uterine segment to enter the uterus at which time lightly meconium stained fluid was noted. The incision was extended both directions using the bandage scissors. The head was encountered which was not anticipated as preoperatively the ultrasound at bedside with the hand-held machine had shown the head in the right upper quadrant. The head was delivered up and through the incision where the nose and mouth were thoroughly suctioned. The remainder of the infant was delivered onto the field where the cord was doubly clamped, cut, and the infant passed resuscitative measures with weight and Apgars as noted above. The placenta was delivered manually and intact as noted above. The uterus was exteriorized and the anterior cavity the uterus swept of any remaining placental or membranous fragments. The margins of the uterine incision were grasped with Bruce clamps and the incision closed in 2 layers. The first layer was a running locking stitch of 0 chromic catgut followed by a running imbricating layer of 0 chromic catgut, each from margin to margin. There was a bleeding point in the left central portion of the incision which was made hemostatic with a xqviwn-[id number] stitch of 0 chromic catgut. The posterior cul-de-sac was suctioned with a guard and a laparotomy sponge in the uterus replaced within the abdominal cavity. The gutters were swept of an remaining blood, fluid, or clot. After ensuring hemostasis and any small points of bleeding having been made hemostatic with the Bovie, the parietal peritoneum was loosely reapproximated. As there was a significant amount of diastases, 2 interrupted qdkfmk-bv-lnvly stitches of 0 chromic catgut were utilized to loosely bring the muscles back to the midline. The layer of muscles was made hemostatic with the Bovie. As there was some generalized oozing, surgical powder was applied. After ensuring hemostasis, the fascia was closed with a single running stitch of 0 Vicryl proceeding from margin to margin. The subcutaneous tissues were made hemostatic with the Bovie and not reapproximated as they were less than 1 cm in depth. The skin was closed with a running subcuticular stitch of 4-0 Vicryl proceeding from margin to margin followed by half-inch Steri-Strips placed with Mastisol. Quantitative blood loss for the case was 563 mL. All sponge, instrument, and needle counts were correct. There were no complications. The patient tolerated the procedure well and proceeded to the recovery room in stable condition. Both mother and infant are resting comfortably in recovery. A physician retail assistant manager was utilized for the entire procedure due to the need for tissue retraction, dissection of vital structures, prevention and management of blood loss and reduction in overall operative and anesthesia time as is the standard of care.
[2024-06-30] MEDS: OXYTOCIN 30 UNITS/500 ML NS 30 UNIT in SALINE 1 500ML.BAG IV SCH (22:01)
[2024-07-01] MEDS: diphenhydrAMINE 50 MG/ML 1 ML VIAL IVP PRN ×2 (00:11→07:35)
[2024-07-01] MEDS: KETOROLAC 15 MG/ML 1 ML VIAL IVP PRN (04:33)
[2024-07-01 06:07] LABS: Basophils # (A) 0.01 10*3/uL (0.00-0.10); Basophils % (A) 0.1 %; Eosinophils # (A) 0.01 10*3/uL (0.04-0.35); Eosinophils % (A) 0.1 %; HCT 27.3 % (37.2-46.3); Lymphocytes # (A) 0.77 10*3/uL (0.90-5.00); Lymphocytes % (A) 10.8 %; MCH 31.1 pg (27.0-32.0); MCHC 34.8 g/dL (32.0-37.0); MCV 89.5 fL (80.0-97.0); Mean Platelet Volume 9.6 fL (9.5-12.2); Monocytes # (A) 0.51 10*3/uL (0.20-1.00); Monocytes % (A) 7.2 %; Neutrophils # (A) 5.77 10*3/uL (1.80-7.70); Neutrophils % (A) 81.4 %; Platelet Count 182 10*3/uL (140-440); RBC 3.05 10*6/uL (4.10-5.20); RDW 12.5 % (11.5-14.5)
[2024-07-01 06:26] LABS: HGB 9.5 g/dL (12.0-15.0)
--- NOTE | 2024-07-01 06:54 | P.PN ---
Progress Note - Text Progress Note Date: 07/01/24 Postoperative day 1 status post section under spinal anesthesia, and intrathecal morphine given for postoperative analgesia, patient doing well, there is no anesthesia related complications, Patient had no headache, vital signs stable , Assessment and plan= postop day 1 status post , doing well there is no anesthesia related complication.
[2024-07-01] MEDS: ACETAMINOPHEN TAB 500 MG TAB PO SCH (07:39)
--- NOTE | 2024-07-01 08:35 | P.PNOBGPC ---
Subjective - Subjective Patient reports: Reports appetite normal, Reports voiding normally, Reports pain well controlled, Reports ambulating normally : doing well Objective - Vital Signs Latest vital signs: Vital Signs Temp Pulse Resp BP Pulse Ox 07/01/24 08:00 98.3 F 87 16 119/79 98 07/01/24 04:00 98.6 F 71 16 134/86 97 06/30/24 23:06 98.2 F 56 L 16 148/88 100 06/30/24 22:51 60 16 135/80 100 06/30/24 22:36 97.7 F 55 L 16 142/80 100 06/30/24 22:21 57 L 16 127/79 100 06/30/24 22:06 55 L 16 129/78 100 06/30/24 21:51 52 L 16 127/76 100 06/30/24 21:36 58 L 16 120/73 100 06/30/24 21:21 55 L 16 123/72 100 06/30/24 21:06 86 16 119/69 100 06/30/24 19:19 99.1 F 76 16 139/92 98 06/30/24 19:18 99.1 F 76 16 139/92 98 Intake and Output 06/30/24 07/01/24 07/01/24 22:59 06:59 14:59 Output Total 1563 687 Balance -1563 -687 Output: Urine 1000 550 Uretheral (Lemus) 450 Output, Estimated Blood 563 Loss Amount Output, Quantitative 137 Blood Loss Other: Voiding Method Indwelling Catheter Indwelling Catheter Weight 48.988 kg - Exam Extremities: Present: normal Abdomen: Present: normal appearance, soft. Absent: distention, tenderness Incision: Present: normal, dry, intact Uterus: Present: normal, firm (The uterine fundus is tonic and appropriately tender of the umbilicus.) - Labs Labs: Abnormal Lab Results - Last 24 Hours (Table) 06/30/24 07/01/24 Range/Units 19:48 05:41 RBC 3.64 L 3.05 L (4.10-5.20) 10*6/uL Hgb 11.4 L 9.5 L D (12.0-15.0) g/dL Hct 32.3 L 27.3 L (37.2-46.3) % Immature Gran # 0.05 H (0.00-0.04) 10*3/uL Lymphocytes # 0.77 L (0.90-5.00) 10*3/uL Eosinophils # 0.02 L 0.01 L (0.04-0.35) 10*3/uL Assessment and Plan (1) Transverse lie Current Visit: Yes Status: Acute Code(s): O32.2XX0 - MATERNAL CARE FOR TRANSVERSE AND OBLIQUE LIE, UNSP SNOMED Code(s): 61245960 (2) Vaginal bleeding during Current Visit: Yes Status: Acute Code(s): O46.90 - ANTEPARTUM HEMORRHAGE, UNSPECIFIED, UNSPECIFIED TRIMESTER SNOMED Code(s): 60480511142329693 (3) Previous section Current Visit: Yes Status: Acute Code(s): Z98.891 - HISTORY OF UTERINE SCAR FROM PREVIOUS SURGERY SNOMED Code(s): 971831868 (4) Active labor at term Current Visit: Yes Status: Acute Code(s): NYX4919 - SNOMED Code(s): 23594970 (5) Status post section Current Visit: Yes Status: Acute Code(s): Z98.891 - HISTORY OF UTERINE SCAR FROM PREVIOUS SURGERY SNOMED Code(s): 107653699 Plan: Continue routine and postoperative care. I have encouraged the patient ambulate in the hallways routinely. I would anticipate discharge home tomorrow pending no complications.
[2024-07-01] MEDS: SENNOSIDES-DOCUSATE SODIUM 1 EACH TAB PO SCH (09:44)
[2024-07-01] MEDS: IBUPROFEN 800 MG TAB PO SCH (21:13)
[2024-07-02 07:38] VITALS: BP 110/53; PULSE 77; RESP 18; TEMP 98.4
--- NOTE | 2024-07-02 08:41 | P.DS ---
Providers Date of admission: 06/30/24 19:47 Expected date of discharge: 07/02/24 Attending physician: Christopher Menezes Primary care physician: Stated None - Discharge Diagnosis(es) (1) Transverse lie Current Visit: Yes Status: Acute (2) Vaginal bleeding during Current Visit: Yes Status: Acute (3) Previous section Current Visit: Yes Status: Acute (4) Active labor at term Current Visit: Yes Status: Acute (5) Status post section Current Visit: Yes Status: Acute Hospital Course: The patient is a 24-year-old 4 para 1-0-2-1 admitted at 38-5/7 weeks by good dating parameters. She is admitted with some moderate vaginal bleeding and uterine contractions every 1 to 3 minutes. She carries a history of a previous section and also had this fetus found in the transverse lie. Plans had been made for repeat section later in the week. Her was otherwise uncomplicated and group B strep status is negative., heart tones are reassuring with a category 1 heart rate tracing. Given the labor and bleeding representing possible abruption, she was taken to the operating room where she underwent repeat low-transverse section in an uncomplicated fashion and was delivered of a viable 6 pound 11 ounce baby girl with Apgars of 8 at 1 minute and 9 at 5 minutes. Her and postoperative course was unremarkable with vital signs remaining stable and her temperature was afebrile throughout. She was deemed stable for discharge on and postoperative day #2. She was discharged home to follow-up in the office in 2 weeks for an incision check in 6 weeks routinely. Discharge instructions included calling for any significantly increased bleeding or foul- smelling lochia, significantly increased fever abdominal pain, perineal complaints, breast complaints, incisional complaints, or anything else that concerned her. She was additionally instructed to have nothing in the vagina for at least 6 weeks time to include intercourse and to abstain from any heavy lifting over the same period of time. She was lastly instructed to do no driving until off of all pain medications or 2 weeks time, whichever came first. She understood her instructions and agrees to follow-up as noted above. Discharge medications included continued vitamins as she has opted to breast-feed. She was otherwise to use [id number] analgesic pain medications. She was provided a prescription for oxycodone 5 mg, 1-2 p.o. every 6 hours as needed pain, #20 dispensed with no refills. Maternal blood type is O+ and rubella status is immune. Discharge hemoglobin and hematocrit were 9.5 and 27.3 respectively. Procedures: #1. Repeat low-transverse section Patient Condition at Discharge: Stable Plan - Discharge Summary New Discharge Prescriptions: No Action Vit No.179/Iron/Folic [ Tablet] 1 each PO DAILY Discharge Medication List Vit No.179/Iron/Folic [ Tablet] 1 each PO DAILY 07/04/22 [History] Follow up Appointment(s)/Referral(s): Christopher Menezes MD [STAFF PHYSICIAN] - 2 Weeks Discharge Disposition: HOME SELF-CARE
== END 2024-07-02 11:40 | disposition home or self-care (01) | DRG 540 ==
LOC: FBPOP 19:14 → 4FBP 19:47
PROVIDERS: ADMIT Obstetrics & Gynecology; ATTEND Obstetrics & Gynecology
PROC: 10D00Z1 Extraction of Products of Conception, Low, Open Approach (ICD-10-PCS; principal; 2024-06-30 21:00)
DX: O34.211 Maternal care for low transverse scar from previous cesarean delivery (principal); O32.2XX0 Maternal care for transverse and oblique lie, not applicable or unspecified; O67.9 Intrapartum hemorrhage, unspecified; O77.0 Labor and delivery complicated by meconium in amniotic fluid; O71.89 Other specified obstetric trauma; Z3A.38 38 weeks gestation of pregnancy; Z37.0 Single live birth
CPT/HCPCS: 59025; 85025; 86850; 86900; 86901; 99213